=== PATIENT | female | born 1995 | race Caucasian/White ===

== ENCOUNTER 2021-08-12 19:14 | Emergency (ER) | payer OTHER ==
[~2021-08-12 19:14] MED LIST: HABITROL 14 MG P1 EA TOP; PRENATAL VITAM1 EAC6 PO
[2021-08-12 22:27] LABS: HEMOGLOBIN 14.3 gm/dl (12.3-15.3); RED BLOOD COUNT 4.41 M/UL (4.00-5.10); WHITE BLOOD COUNT 10.7 K/UL (4.5-11.0)
[2021-08-13 00:54] LABS: BUN/CREATININE RATIO 16 (0-10)
== END 2021-08-13 00:50 | disposition home or self-care (01) ==
LOC: ER1 19:14
PROVIDERS: Student in an Organized Health Care Education/Training Program
DX: N93.9 Abnormal uterine and vaginal bleeding, unspecified (principal)
CPT/HCPCS: 76830; 80053; 85025; 86850; 86900; 86901; 99284

== ENCOUNTER 2021-10-14 14:52 | Emergency (ER) | payer OTHER | END 2021-10-14 16:12 | disposition left against medical advice (07) | LOC: ER1 14:52 | DX: Z53.21 Procedure and treatment not carried out due to patient leaving prior to being seen by health care provider (principal) ==